=== PATIENT | male | born 1945 | race Caucasian/White ===

== ENCOUNTER → 2016-10-15 | Outpatient (CLI) | payer MEDICARE, BC ==
[~2016-10-15] MED LIST: FLOMAX0.4 MG ORAL; IBUPROFEN600 MG ORAL; NORCO 5-325 TA1 EACH ORAL; ZOFRAN ODT4 MG ORAL
--- NOTE | 2016-10-15 13:19 | Diagnostic Imaging Report ---
Indications: Pulmonary nodule Technique: Continuous helical CT imaging of the thorax and upper abdomen was performed with automatic exposure control on a Siemens sensation [address] scanner. Axial images were reconstructed at 5 mm slice thickness and interval. Coronal images were reconstructed at 5 mm slice thickness. No IV contrast was administered secondary to requesting physician's order, despite no contraindications listed. CTDI volume(s): 27 mGy Total DLP: 953 mGy-cm Findings: Comparison: 07/27/2014 3 mm noncalcified nodule medial aspect posterior segment right upper lobe (4-16) unchanged. 3 mm calcified nodule medial segment right middle lobe (4-31) unchanged. 2 mm noncalcified nodule periphery lateral basal segment right lower lobe (4-36) unchanged. 5 mm calcified nodule in the lingula (4-33) unchanged. Patchy groundglass opacity medial segment right lower lobe (4-33) decreased. Patchy groundglass opacity previously demonstrated in the posterior basal segment right lower lobe resolved. No new pulmonary parenchymal abnormality demonstrated. No pleural disease is evident. Heart remains normal in size. No pericardial abnormality. Scattered arterial mural calcification. Vascular patency indeterminate. Thoracic aorta nonaneurysmal. No overtly enlarged mediastinal or hilar lymph nodes detected. Asymmetrically increased soft tissue density in retroareolar aspect of right anterior chest wall unchanged. Chest wall soft tissues remain otherwise nonfocal. 5 mm stone upper pole right kidney unchanged. Remainder of imaged upper abdominal anatomy unremarkable. Disc space narrowing with marginal osteophyte formation, vacuum phenomenon scattered throughout thoracic spine unchanged. IMPRESSION: Stable bilateral lung nodules as described, likely all granulomatous in nature Decrease in medial basal segment, resolution of posterior basal segment right lower lobe patchy groundglass opacities compatible with resolving inflammatory disease Mild arteriosclerosis Stable right gynecomastia Stable nonobstructive right nephrolithiasis Degenerative spondylosis
== END | disposition home or self-care (01) ==
LOC: CAT 10:11
DX: R91.8 Other nonspecific abnormal finding of lung field (principal); I70.90 Unspecified atherosclerosis; N62 Hypertrophy of breast; N20.0 Calculus of kidney; M47.9 Spondylosis, unspecified
CPT/HCPCS: 71250

== ENCOUNTER 2017-01-24 16:14 | Inpatient (IN) | payer MEDICARE, BC ==
[~2017-01-24] VITALS: Ht 180.3 cm; Wt 117.5 kg
[2017-01-24] MEDS ORDERED: METFORMIN HCL500 M1 ORAL (16:25)
[2017-01-24] MEDS ORDERED: LIVALO4 MG PO (16:26)
[2017-01-24] MEDS ORDERED: Morphine Sulfate 4mg/ml Inj IVP ONE ×2 (16:45→18:15)
[2017-01-24 17:10] VITALS: BP 145/71
[2017-01-24 17:29] LABS: BASOPHILS % (AUTO) 1.3 % (0.0-2.0); LYMPHOCYTES % (AUTO) 31.4 % (20.0-45.0); MEAN CORPUSCULAR HEMOGLOBIN 30.1 PG (27.0-31.0); MEAN CORPUSCULAR VOLUME 86 FL (80-99); MONOCYTES % (AUTO) 8.1 % (1.0-10.0); NEUTROPHILS % (AUTO) 57.2 % (45.0-75.0); PLATELET COUNT 218 K/UL (150-450); RED BLOOD COUNT 5.67 M/UL (4.70-6.10); RED CELL DISTRIBUTION WIDTH 12.7 % (11.6-14.8)
[2017-01-24 17:54] LABS: ALANINE AMINOTRANSFERASE 42 U/L (3-41); ANION GAP 19 (5-15); ASPARTATE AMINO TRANSFERASE 33 U/L (5-40); CALCIUM 9.3 mg/dL (8.6-10.2); CARBON DIOXIDE 21 mEQ/L (20-30); CHLORIDE 101 mEQ/L (98-107); CREATININE 1.3 mg/dL (0.7-1.2); HEMOLYSIS 51; LIPASE 54 U/L (< 60); POTASSIUM 4.5 mEQ/L (3.4-4.9); SODIUM 141 mEQ/L (135-145); TOTAL PROTEIN 6.3 g/dL (6.6-8.7)
[2017-01-24] MEDS ORDERED: Ketorolac 30mg Inj IV ONE (18:15)
[2017-01-24 18:19] LABS: APPEARANCE,URINE CLEAR; KETONES,URINE 1+ (NEGATIVE); LEUKOCYTE ESTERASE ,URINE 1+ (NEGATIVE); NITRITE,URINE NEGATIVE (NEGATIVE); PH,URINE 5 (4.5-8.0); PROTEIN,URINE 1+ (NEGATIVE); UROBILINOGEN,URINE 1 MG/DL (0.0-1.0)
[2017-01-24 18:29] LABS: AMORPHOUS SEDIMENT,UR FEW /LPF; BACTERIA,URINE FEW /HPF
[2017-01-24 19:15] VITALS: BP 133/78
[2017-01-24] MEDS ORDERED: cefTRIAXone 1 GM in NS 55 ML IVPB ONE (19:45)
--- NOTE | 2017-01-24 19:49 | Emergency Room Report ---
History of Present Illness General Chief Complaint: Abdominal Pain Source: Patient Present Illness HPI 71-year-old male presents to ED complaining of abdominal pain x3 days. Notes pain and right lower quadrant, sharp, 8 at 10, nonradiating. Denies nausea or vomiting. Denies fevers or chills. States he previously had his appendix removed. Notes history of kidney stones. No aggravating or relieving factors. Denies any other associated symptoms Allergies: Coded Allergies: No Known Allergies (Unverified , 02/21/14) Patient History Past Medical History: DM, other - kidney stones Past Surgical History: none Pertinent Family History: none Social History: Denies: alcohol use, drug use, smoking Immunizations: UTD Reviewed Nursing Documentation: PMH: Agreed, PSxH: Agreed Nursing Documentation-PMH Past Medical History: No History, Except For Hx Diabetes: Yes Hx Neurological Problems: Yes - Peripheral neuropathy, spinal stenoisis, arthritis Review of Systems All Other Systems: negative except mentioned in HPI Physical Exam Vital Signs Date Time Temp Pulse Resp B/P Pulse Ox O2 Delivery O2 Flow Rate FiO2 01/24/17 16:20 98.2 95 16 132/91 96 Room Air Sp02 EP Interpretation: reviewed, normal General Appearance: no apparent distress, alert, GCS 15, non-toxic, obese Head: normocephalic Eyes: bilateral eye PERRL, bilateral eye normal inspection ENT: normal ENT inspection Neck: normal inspection Respiratory: chest non-tender, lungs clear, normal breath sounds, speaking full sentences Cardiovascular #1: regular rate, rhythm, no edema Gastrointestinal: tenderness - RLQ Genitourinary: no CVA tenderness Musculoskeletal: normal inspection Neurologic: alert, oriented x3, responsive, motor strength/tone normal, sensory intact, speech normal Psychiatric: normal inspection Skin: normal inspection Lymphatic: normal inspection Medical Decision Making Diagnostic Impression: Primary Impression: Kidney stone Additional Impressions: Ureterolithiasis Hydronephrosis with renal and ureteral calculous obstruction ARF (acute renal failure) Qualified Codes: N17.9 - Acute kidney failure, unspecified ER Course Hospital Course 71-year-old M presents to ED with RLQ pain Differential diagnosis includes-appendicitis, cholecystitis, kidney stone, pyelonephritis Clinical course Patient placed on stretcher. After initial history and physical I ordered labs , IV fluids, pain medications and CT scan Labs - noted leukocytosis, Cr 1.3, LFTs normal, UA - gross blood some bacteria CT scan shows proximal 5mm stone obstructive. perinephric stranding Given leukocytosis, perinephric stranding, THEA I believe patient should be admitted. Antibiotics given. case discussed with Dr Cordero and she agreed to admit the patient to her service for further care and support I feel this is a highly complex case requiring extensive working including EKG/ Rhythm strip, Xray/CT/US, Blood/urine lab work, repeat exams while in ED, and administration of strong opiates/narcotics for pain control, admission to hospital or close patient follow up. Diagnosis - kidney stone, ureterolithiasis, hydronephrosis with renal and ureteral obstruction admitted in serious condition Labs Test 01/24/17 17:00 01/24/17 18:05 White Blood Count 12.0 K/UL (4.8-10.8) Red Blood Count 5.67 M/UL (4.70-6.10) Hemoglobin 17.1 G/DL (14.2-18.0) Hematocrit 48.8 % (42.0-52.0) Mean Corpuscular Volume 86 FL (80-99) Mean Corpuscular Hemoglobin 30.1 PG (27.0-31.0) Mean Corpuscular Hemoglobin Concent 35.0 G/DL (32.0-36.0) Red Cell Distribution Width 12.7 % (11.6-14.8) Platelet Count 218 K/UL (150-450) Mean Platelet Volume 7.0 FL (6.5-10.1) Neutrophils (%) (Auto) 57.2 % (45.0-75.0) Lymphocytes (%) (Auto) 31.4 % (20.0-45.0) Monocytes (%) (Auto) 8.1 % (1.0-10.0) Eosinophils (%) (Auto) 2.0 % (0.0-3.0) Basophils (%) (Auto) 1.3 % (0.0-2.0) Sodium Level 141 mEQ/L (135-145) Potassium Level 4.5 mEQ/L (3.4-4.9) Chloride Level 101 mEQ/L (98-107) Carbon Dioxide Level 21 mEQ/L (20-30) Anion Gap 19 (5-15) Blood Urea Nitrogen 22 mg/dL (7-23) Creatinine 1.3 mg/dL (0.7-1.2) Estimat Glomerular Filtration Rate mL/min (>60) Glucose Level 105 mg/dL (74-106) Calcium Level 9.3 mg/dL (8.6-10.2) Total Bilirubin 0.3 mg/dL (0.0-1.2) Aspartate Amino Transf (AST/SGOT) 33 U/L (5-40) Alanine Aminotransferase (ALT/SGPT) 42 U/L (3-41) Alkaline Phosphatase 85 U/L (40-129) Total Protein 6.3 g/dL (6.6-8.7) Albumin 3.2 g/dL (3.5-5.2) Globulin 3.1 g/dL Albumin/Globulin Ratio 1.0 (1.0-2.7) Lipase 54 U/L (< 60) Urine Color Yellow Urine Appearance Clear Urine pH 5 (4.5-8.0) Urine Specific [place] 1.025 (1.005-1.035) Urine Protein 1+ (NEGATIVE) Urine Glucose (UA) Negative (NEGATIVE) Urine Ketones 1+ (NEGATIVE) Urine Occult Blood 5+ (NEGATIVE) Urine Nitrite Negative (NEGATIVE) Urine Bilirubin Negative (NEGATIVE) Urine Urobilinogen 1 MG/DL (0.0-1.0) Urine Leukocyte Esterase 1+ (NEGATIVE) Urine RBC 5-10 /HPF (0 - 0) Urine WBC 2-4 /HPF (0 - 0) Urine Squamous Epithelial Cells None /LPF (NONE/OCC) Urine Amorphous Sediment Few /LPF (NONE) Urine Bacteria Few /HPF (NONE) CT/MRI/US Diagnostic Results CT/MRI/US Diagnostic Results : Imaging Test Ordered: CT A/P Impression 5mm stone in Right proximal ureter 5mm. obstructive. bilateral renal stones. perinephric infiltration/fluid. hypoperfusion R kidney compared to left. bladder wall thickening. Last Vital Signs Date Time Temp Pulse Resp B/P Pulse Ox O2 Delivery O2 Flow Rate FiO2 01/24/17 19:15 98.2 86 13 133/78 96 Room Air Status: improved Disposition: ADMITTED INPATIENT Condition: Serious Referrals: RAFAEL ZARATE (PCP) COLLIN HARDY M.D. January 24, 2017 19:49
[2017-01-24 20:00] VITALS: BP 188/102
[2017-01-24 20:30] VITALS: BP 133/75
[2017-01-24 21:00] VITALS: BP 125/68
[2017-01-24] MEDS ORDERED: Heparin 5000 units/ml inj SUBQ ONE (21:30)
[2017-01-24 22:00] VITALS: BP 131/80
[2017-01-24] MEDS ORDERED: ASPIRIN81 MG ORAL (23:12)
[2017-01-24] MEDS ORDERED: VITAMIN D1000 UNI1 ORAL (23:12)
[2017-01-25] VITALS: BP 115/70
[2017-01-25 04:00] VITALS: BP 129/84
[2017-01-25] MEDS: metFORMIN 500mg tab ORAL SCH ×3 (05:56→16:33)
[2017-01-25] MEDS: Morphine Sulfate 4mg/ml Inj IVP PRN ×3 (05:56→23:25)
[2017-01-25] MEDS: NovoLOG Insulin Flexpen SUBQ SCH ×4 (06:23→21:00)
[2017-01-25 07:22] LABS: BASOPHILS % (AUTO) 1.1 % (0.0-2.0); LYMPHOCYTES % (AUTO) 31.6 % (20.0-45.0); MEAN CORPUSCULAR HEMOGLOBIN 28.3 PG (27.0-31.0); MEAN CORPUSCULAR HGB CONC 33.4 G/DL (32.0-36.0); MEAN CORPUSCULAR VOLUME 85 FL (80-99); MEAN PLATELET VOLUME 8.1 FL (6.5-10.1); MONOCYTES % (AUTO) 9.1 % (1.0-10.0); NEUTROPHILS % (AUTO) 56.4 % (45.0-75.0); PLATELET COUNT 199 K/UL (150-450); RED BLOOD COUNT 5.17 M/UL (4.70-6.10); RED CELL DISTRIBUTION WIDTH 12.6 % (11.6-14.8)
[2017-01-25 07:36] LABS: ALANINE AMINOTRANSFERASE 33 U/L (3-41); ALBUMIN/GLOBULIN RATIO 1.1 (1.0-2.7); ANION GAP 15 (5-15); ASPARTATE AMINO TRANSFERASE 25 U/L (5-40); CALCIUM 8.5 mg/dL (8.6-10.2); CARBON DIOXIDE 25 mEQ/L (20-30); CHLORIDE 102 mEQ/L (98-107); CREATININE 1.2 mg/dL (0.7-1.2); HEMOLYSIS 7; POTASSIUM 3.7 mEQ/L (3.4-4.9); SODIUM 142 mEQ/L (135-145); TOTAL PROTEIN 5.5 g/dL (6.6-8.7)
[2017-01-25 08:00] VITALS: BP 132/56
--- NOTE | 2017-01-25 09:26 | Nephrology Progress Note ---
Assessment/Plan Assessment 1.nephrolithiasis 2.right hydro 3.THEA 4.UTI 5.DM 6.Dyslipidemia Plan IVF Pain management iv antibiotic urology consult Subjective Constitutional: Reports: no symptoms HEENT: Reports: no symptoms Genitourinary: Reports: burning, flank pain, frequency, hematuria Neurologic/Psychiatric: Reports: no symptoms Objective Objective Last 24 Hour Vital Signs Date Time Temp Pulse Resp B/P Pulse Ox O2 Delivery O2 Flow Rate FiO2 01/25/17 08:00 97.9 89 20 132/56 95 Room Air 01/25/17 06:26 97.5 01/25/17 04:00 97.5 65 20 129/84 95 Room Air 01/25/17 00:00 97.5 67 20 115/70 95 Room Air 01/24/17 22:00 98.2 69 17 131/80 100 Room Air 01/24/17 22:00 69 17 131/80 100 Room Air 01/24/17 21:00 98.1 72 17 125/68 100 Room Air 01/24/17 20:30 98.0 74 16 133/75 99 Room Air 01/24/17 20:00 97.7 75 18 188/102 98 Room Air 01/24/17 19:15 98.2 86 13 133/78 96 Room Air 01/24/17 19:08 98.3 01/24/17 19:07 98.3 01/24/17 18:01 98.3 01/24/17 17:10 96 17 145/71 95 Room Air 01/24/17 16:20 98.2 95 16 132/91 96 Room Air Intake and Output 01/24/17 01/25/17 19:00 07:00 Intake Total 525 ml Output Total 850 ml Balance -325 ml Intake IV Total 525 ml Output Urine Total 850 ml Laboratory Tests 01/24/17 17:00: White Blood Count 12.0H, Red Blood Count 5.67, Hemoglobin 17.1, Hematocrit 48.8 , Mean Corpuscular Volume 86, Mean Corpuscular Hemoglobin 30.1, Mean Corpuscular Hemoglobin Concent 35.0, Red Cell Distribution Width 12.7, Platelet Count 218, Mean Platelet Volume 7.0, Neutrophils (%) (Auto) 57.2, Lymphocytes (% ) (Auto) 31.4, Monocytes (%) (Auto) 8.1, Eosinophils (%) (Auto) 2.0, Basophils ( %) (Auto) 1.3, Sodium Level 141, Potassium Level 4.5, Chloride Level 101, Carbon Dioxide Level 21, Anion Gap 19H, Blood Urea Nitrogen 22, Creatinine 1.3H , Estimat Glomerular Filtration Rate , Glucose Level 105, Calcium Level 9.3, Total Bilirubin 0.3, Aspartate Amino Transf (AST/SGOT) 33, Alanine Aminotransferase (ALT/SGPT) 42H, Alkaline Phosphatase 85, Total Protein 6.3L, Albumin 3.2L, Globulin 3.1, Albumin/Globulin Ratio 1.0, Lipase 54 01/24/17 18:05: Urine Color Yellow, Urine Appearance Clear, Urine pH 5, Urine Specific [place] 1.025, Urine Protein 1+H, Urine Glucose (UA) Negative, Urine Ketones 1+H, Urine Occult Blood 5+H, Urine Nitrite Negative, Urine Bilirubin Negative, Urine Urobilinogen 1H, Urine Leukocyte Esterase 1+H, Urine RBC 5-10H, Urine WBC 2-4, Urine Squamous Epithelial Cells None, Urine Amorphous Sediment FewH, Urine Bacteria Few 01/25/17 04:40: White Blood Count 10.0, Red Blood Count 5.17, Hemoglobin 14.6, Hematocrit 43.7, Mean Corpuscular Volume 85, Mean Corpuscular Hemoglobin 28.3, Mean Corpuscular Hemoglobin Concent 33.4, Red Cell Distribution Width 12.6, Platelet Count 199, Mean Platelet Volume 8.1, Neutrophils (%) (Auto) 56.4, Lymphocytes (%) (Auto) 31.6, Monocytes (%) (Auto) 9.1, Eosinophils (%) (Auto) 2.0, Basophils (%) (Auto ) 1.1, Sodium Level 142, Potassium Level 3.7, Chloride Level 102, Carbon Dioxide Level 25, Anion Gap 15, Blood Urea Nitrogen 22, Creatinine 1.2, Estimat Glomerular Filtration Rate , Glucose Level 107H, Calcium Level 8.5L, Total Bilirubin 0.4, Aspartate Amino Transf (AST/SGOT) 25, Alanine Aminotransferase ( ALT/SGPT) 33, Alkaline Phosphatase 70, Total Protein 5.5L, Albumin 2.9L, Globulin 2.6, Albumin/Globulin Ratio 1.1 Height (Feet): 5 Height (Inches): 11.00 Weight (Pounds): 259 Objective Head: normocephalic Eyes: bilateral eye PERRL, bilateral eye normal inspection ENT: normal ENT inspection Neck: normal inspection Respiratory: chest non-tender, lungs clear, normal breath sounds, speaking full sentences Cardiovascular #1: regular rate, rhythm, no edema Gastrointestinal: tenderness - RLQ Genitourinary: no CVA tenderness Musculoskeletal: normal inspection Neurologic: alert, oriented x3, responsive, motor strength/tone normal, sensory intact, speech normal NINFA COPE January 25, 2017 09:26
[2017-01-25] MEDS: Heparin 5000 units/ml inj SUBQ SCH ×2 (09:29→21:23)
[2017-01-25 12:00] VITALS: BP 132/78
[2017-01-25 16:00] VITALS: BP 143/69
[2017-01-25 20:00] VITALS: BP 143/85
[2017-01-25] MEDS ORDERED: Tamsulosin 0.4mg cap ORAL SCH (21:00)
--- NOTE | 2017-01-26 | Consultation ---
DATE OF CONSULTATION: 01/25/2017 CONSULTING PHYSICIAN: Korey Larsen M.D. REFERRING PHYSICIAN: Sharyn Cordero M.D. REASON FOR CONSULTATION: For evaluation of kidney stone. HISTORY OF PRESENT ILLNESS: This is a pleasant 71-year-old male, who came to the hospital because of abdominal pain, which was mostly right-sided. He had a CT scan that showed an obstructive stone of the right proximal ureter. Urology evaluation requested. The patient states that he has had kidney stones before. He has had previous surgery before. He has occasional urinary frequency. PAST MEDICAL HISTORY: Significant for above, also history of diabetes. PAST SURGICAL HISTORY: As above. CURRENT MEDICATIONS: In the hospital, the patient is on Levaquin, heparin, metformin, insulin, sodium chloride, and Zofran. ALLERGIES: No know drug allergies. SOCIAL HISTORY: Currently nonsmoker. FAMILY HISTORY: Noncontributory. REVIEW OF SYSTEMS: As above. PHYSICAL EXAMINATION: GENERAL: This is an elderly male, in no acute distress. VITAL SIGNS: Temperature is 97.9 degrees, blood pressure 142/65, pulse 70, and respirations 20. HEENT: Normocephalic. NECK: Supple. ABDOMEN: Soft. BACK: No CVA tenderness. GENITALIA: Normal genitalia. RECTAL: Smooth prostate 40 grams. EXTREMITIES: No clubbing or cyanosis. LABORATORY AND DIAGNOSTIC DATA: UA showed 2 to 4 WBCs, 5 to 10 RBCs, 1+ protein. White count 10.0, hemoglobin 14.6, and platelets of 199,000. BUN is 22 and creatinine 1.2. Diagnostic imaging studies, the patient had a CT scan of the abdomen and pelvis. The final report is not available. However, the preliminary report showed evidence of a 5-mm stone of the right proximal ureter and there was also mention of perinephric stranding, renal calculi, and some hydronephrosis. IMPRESSION: 1. Nephrolithiasis and stone of the right proximal ureter. 2. Hydronephrosis secondary to above. 3. Hematuria. 4. Proteinuria. 5. Benign prostate hypertrophy. 6. Urinary frequency. 7. Rule out neurogenic bladder. PLAN AND DISCUSSION: The patient again does have obstructive stone of the right ureter. He has some hydronephrosis. I will follow up on the final results of the CT. At this time, I would recommend a trial of passage with straining of urine. I will also add Flomax 0.4 mg daily. If the patient continues to have pain and is not able to pass the stone, then we may need to have intervention with ureteroscopy laser lithotripsy and stent placement. The above was discussed with the patient. I will follow the patient. Any other recommendations will be forthcoming. Thank you, Dr. Cordero, for asking me to see this patient in consultation. Korey Larsen M.D. DR: Andrade JOB#: [id number] CC:
[2017-01-26 04:00] VITALS: BP 132/66
[2017-01-26] MEDS: metFORMIN 500mg tab ORAL SCH (07:03)
[2017-01-26] MEDS: NovoLOG Insulin Flexpen SUBQ SCH (07:05)
[2017-01-26 08:11] VITALS: BP 128/75
--- NOTE | 2017-01-26 08:12 | General Progress Note ---
Progress Note Progress Note [id number] full note dictated NINFA COPE January 26, 2017 08:12
[2017-01-26] MEDS: Heparin 5000 units/ml inj SUBQ SCH (08:16)
[2017-01-26] MEDS ORDERED: NORCO 10-325 T1 EACH ORAL (08:30)
--- NOTE | 2017-01-26 08:31 | History and Physical Report ---
DATE OF ADMISSION: 01/24/2017 PRIMARY DOCTOR: Juan Santoro M.D. REASON FOR ADMISSION: Abdominal pain. HISTORY OF PRESENT ILLNESS: The patient is a very pleasant 71-year-old man with past medical history significant for a history of diabetes, hypertension, and history of kidney stone in the past. He is post lithotripsy and removal of the kidney stone. He presented to the emergency room complaining of right flank pain. The pain was 8/10. He denied having any nausea or vomiting. He complained of dark urine color, but denies having any frequency, urgency, or hematuria. There is no aggravating or relieving factor for the pain. CT scan of the abdomen was found to have recurrent small kidney stone and hydronephrosis. The patient decided to be admitted and I was called for admission. ALLERGIES: No known drug allergies. SOCIAL HISTORY: He worked as , but there is no history of tobacco, alcohol, or drug use. FAMILY HISTORY: Negative for any premature heart disease. PAST MEDICAL HISTORY: 1. History of diabetes. 2. History of . 3. History of arthritis. 4. History of chronic kidney disease. 5. Dyslipidemia. 6. Kidney stone. PAST SURGICAL HISTORY: History of lithotripsy and kidney stone removal. REVIEW OF SYSTEMS: General: He denies any weight loss, weight gain, fever, chills, or night sweats. HEENT And Neck: Denies any dysphagia, odynophagia, blurry vision, headache, or neck stiffness. Pulmonary: No shortness of breath, cough, or sputum. Cardiovascular: Denies any chest pain or palpitations. Gastrointestinal: Denies any nausea, vomiting, diarrhea, hematemesis, or hematochezia. Genitourinary: He did complain of dark urine and mild dysuria. No frequency. No gross hematuria. Extremities: Denies any weakness or numbness. PHYSICAL EXAMINATION: VITAL SIGNS: Temperature 98, blood pressure 125/68, pulse rate 72, and respiratory rate 18. HEENT AND NECK: No JVP. No LAD. No thyromegaly. Extraocular movements are intact. Pupils are reactive to light and accommodation. LUNGS: Clear to auscultation. CARDIAC: Regular rate and rhythm. S1 and S2. No murmur. No rub. ABDOMEN: Soft and nontender. Mild right CVA tenderness. EXTREMITIES: No edema. No clubbing. No cyanosis. LABORATORY DATA: WBC 12, hemoglobin 14.6, hematocrit 43, and platelet count 189,000. Chemistry revealed sodium of 141, potassium 4.1, chloride 101, bicarb 21, BUN 19, creatinine 1.2, glucose 105, and calcium 9.5. AST 33, ALT 42, alkaline phosphatase 85, total protein 6.3, and albumin 3.3. UA revealed specific gravity of 1.025, protein 1+, ketone 1+, blood 5+, WBCs 5-10, RBCs 3-4, and bacteria many. CT of the abdomen revealed a 5 mm stone in the right proximal ureter, bilateral renal stones, inflammation, and hypoperfusion of the right kidney compared to the left. ASSESSMENT: 1. Right obstructive kidney stone. 2. Acute renal failure. 3. Possible urinary tract infection. 4. Diabetes. 5. Dyslipidemia. PLAN: I would start the patient on IV fluids and pain management . I did consult Urology for further evaluation. I did IV hydration. I will monitor renal function and electrolytes closely. We will continue to do the blood sugar. Sharyn Cordero M.D. DR: BRISEYDA JOB#: [id number] CC:
[2017-01-26] MEDS ORDERED: TAMSULOSIN HCL0.4 MG ORAL (08:32)
--- NOTE | 2017-01-26 08:34 | Diagnostic Imaging Report ---
Indications: Nonradiating right lower quadrant abdominal pain for 3 days Technique: Continuous helical CT imaging of the abdomen and pelvis was performed with automatic exposure control following administration of nonionic IV contrast only, on a Siemens sensation [address] scanner. Axial and coronal images were reconstructed at 5 mm slice thickness. No oral contrast was administered per requesting physician's order, no contraindications listed. CTDI volume(s): 19 mGy Total DLP: 1003 mGy-cm Findings: Comparison: Noncontrast CT abdomen pelvis 10/18/2014 5 mm stone currently resides within the right ureteropelvic junction. Right renal collecting system mildly dilated. Mild stranding and fluid surrounding the right kidney. Right nephrographic enhancement delayed compared left. Additional 8 and 5 mm stones are present within the right kidney, likely within calyces/infundibulum. 5 mm stone within the lower pole of left kidney, likely within calyxes. Left renal collecting system and ureter normal caliber. No surrounding stranding or fluid. Urinary bladder poorly distended with apparent diffuse mural thickening, unchanged. No intraluminal stone. Nodular calcifications again noted in tail of pancreas, left are somewhat atrophic. Scattered arterial mural calcifications without obvious flow-limiting stenosis or occlusion. Small fat-containing right inguinal hernia. Remainder visualized abdominopelvic anatomy demonstrates no other obvious acute abnormality. Lung bases adjacent pleural surfaces clear. Degenerative changes again noted in lumbar, lower thoracic spine. IMPRESSION: 5 mm obstructing stone right ureteropelvic junction with mild hydronephrosis, perinephric fluid. Superimposed pyelonephritis not excludable. Delayed nephrographic enhancement compared left compatible with at least a mild degree of obstructive nephropathy. Excretory function cannot be evaluated on this examination due to lack of delayed imaging. Additional bilateral nonobstructive nephrolithiasis. Focal infundibular obstruction by stone in upper pole of right kidney not excludable. 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
[2017-01-26] MEDS ORDERED: Tubing IV Secondary IV ONE (09:19)
--- NOTE | 2017-01-26 09:37 | Urology Progress Note ---
Assessment/Plan Assessment/Plan 1. Nephrolithiasis and stone of the right proximal ureter. 2. Hydronephrosis secondary to above. 3. Hematuria. 4. Proteinuria. 5. Benign prostate hypertrophy. 6. Urinary frequency. 7. Rule out neurogenic bladder. d/w pt extensively CT scan reviewed options of trial of passage vs lithotripsy pt wants to cont straining urine and go home with outpt f/u will plan to see in office this week check KUB as outpt and then decide on surg if needed Subjective Allergies: Coded Allergies: No Known Allergies (Unverified , 02/21/14) Subjective all noted, pt seen earlier this morning, fair sx's, no significant flank pain, wants to go home Objective Last 24 Hour Vital Signs Date Time Temp Pulse Resp B/P Pulse Ox O2 Delivery O2 Flow Rate FiO2 01/26/17 08:11 97.9 114 23 128/75 97 Room Air 01/26/17 04:00 98.0 80 20 132/66 95 Room Air 01/25/17 20:00 98.1 89 20 143/85 94 Room Air 01/25/17 16:00 97.9 78 20 143/69 96 Room Air 01/25/17 12:27 97.9 01/25/17 12:00 97.9 52 20 132/78 97 Room Air Intake and Output 01/25/17 01/26/17 19:00 07:00 Intake Total 3650 ml 675 ml Output Total 2100 ml Balance 1550 ml 675 ml Intake Oral 3000 ml IV Total 650 ml 675 ml Output Urine Total 2100 ml # Voids 2 Height (Feet): 5 Height (Inches): 11.00 Weight (Pounds): 259 Objective exam stable JOHN HANSEN January 26, 2017 09:37
--- NOTE | 2017-01-27 00:45 | Discharge Summary ---
DATE OF ADMISSION: 01/24/2017 DATE OF DISCHARGE: 01/26/2017 ADMISSION DIAGNOSES: 1. Acute nephrolithiasis. 2. Hydronephrosis. 3. Hematuria. 4. Proteinuria. 5. Benign prostatic hypertrophy. 6. Diabetes. COURSE OF HOSPITAL ADMISSION: The patient is a pleasant 71-year-old male with past medical history significant for history of nephrolithiasis and history of lithotripsy, who presented to the emergency room complaining of right-sided hydronephrosis. The patient was evaluated and admitted in the hospital, started on IV fluids and pain medication. He was seen by urologist. Plan to do an outpatient CT urogram by Dr. Larsen and possibly lithotripsy to be scheduled as an outpatient. The patient would like to be discharged and have follow up with outpatient visit with Dr. Larsen and arrange for lithotripsy as an outpatient. The patient's condition got better. His pain got under control. The patient was also given pain medication as outpatient. He started on Flomax and also was explained to need to strain the urine for evaluation of the kidney stone analysis. PHYSICAL EXAMINATION: VITAL SIGNS: Upon discharge, the patient 's vital signs, temperature was 98 degrees, blood pressure was 132/78, pulse 52, and respiratory rate of 18. HEAD AND NECK: No JVP. No LAD. No thyromegaly. Extraocular movement intact. Pupils are reactive to light and accommodation. LUNGS: Clear to auscultation. CARDIAC: Regular rate and rhythm. S1-S2. No murmur. No rub. ABDOMEN: Soft, nontender, and nondistended. EXTREMITIES: No edema. No clubbing. No cyanosis. LABORATORY AND DIAGNOSTIC DATA: Revealed sodium 141, potassium 3.7, 102 chloride, 25 bicarb, BUN 22, creatinine dropped from 4.3 to 1.2, and glucose of 105. Calcium was 8.5. The patient did not have any white count. WBC count was 10, hemoglobin 14.6, hematocrit 43, and platelet count 536,000. The patient had a CT scan of the abdomen, which review the final report is not available. The preliminary report revealed 5 mm kidney stone with right-sided perinephric stranding. DISCHARGE DIAGNOSES: 1. Nephrolithiasis. 2. Right hydronephrosis. 3. Hypertension. 4. Diabetes. 5. Benign prostatic hypertrophy. 6. Hypocalcemia. 7. Acute renal failure. DISPOSITION: Home with pain medication and Flomax. FOLLOWUP: Follow up will be with the primary doctor and also with Dr. Larsen for treatment of lithotripsy and cystoscopy. Sharyn Cordero M.D. DR: Estefania JOB#: [id number] CC:
== END 2017-01-26 09:20 | disposition home or self-care (01) | DRG 694 ==
LOC: EMR 16:44 → 3E 19:40 → EDBEDREQ 20:12 → 4E 21:28
DX: N13.2 Hydronephrosis with renal and ureteral calculous obstruction (principal); N17.9 Acute kidney failure, unspecified; N40.1 Benign prostatic hyperplasia with lower urinary tract symptoms; R35.0 Frequency of micturition; E11.9 Type 2 diabetes mellitus without complications; E78.5 Hyperlipidemia, unspecified; E83.51 Hypocalcemia; M19.90 Unspecified osteoarthritis, unspecified site; I12.9 Hypertensive chronic kidney disease with stage 1 through stage 4 chronic kidney disease, or unspecified chronic kidney disease; N18.9 Chronic kidney disease, unspecified
CPT/HCPCS: 36415; 74177; 80053; 81003; 82962; 83690; 85025; J1815

== ENCOUNTER 2017-12-17 08:55 | Outpatient (CLI) | payer MEDICARE, BC ==
[~2017-12-17 08:55] MED LIST changes: +ASPIRIN81 MG ORAL; +LIVALO4 MG PO; +METFORMIN HCL500 M1 ORAL; +NORCO 10-325 T1 EACH ORAL; +TAMSULOSIN HCL0.4 MG ORAL; +VITAMIN D1000 UNI1 ORAL
--- NOTE | 2017-12-17 11:01 | Diagnostic Imaging Report ---
Indication: Chest and abdominal pain. Chronic cough Technique: Continuous helical transaxial imaging of the abdomen and pelvis was obtained from the lung bases to the pubic symphysis. No IV contrast was administered. Coronal 2-D reformats were also obtained. Study obtained in a Siemens sensation [address] Total Dose length Product (DLP): 1639.[address] Dose Index Volume (CTDIvol): 24.68 mGy Comparison: CT chest 10/15/2016. CT abdomen and pelvis 01/24/2017 Findings: CT CHEST: There is minimal scarring involving the posterior medial right lung base. The lungs are clear otherwise. There is no evidence of infiltrate/airspace disease or abnormal interstitial opacities. No pleural effusion identified. No adenopathy appreciated. Gynecomastia noted. Small hiatal hernia is present. There is narrowing of intervertebral discs and accompanying endplate osteophyte formation. Hypertrophied facet joints also demonstrated.. CT abdomen and pelvis: Study is done as a noncontrast examination and as such evaluation of solid organs is limited. Gallbladder is unremarkable. There are tiny nonobstructive stones within both kidneys. There is no hydronephrosis. No evidence of bowel obstruction or significant free fluid. Accessory spleen noted. The appendix is normal. Arterial calcifications are present. There is a small right inguinal hernia containing fat. There are diverticula in the colon mild in degree. No definite diverticulitis appreciated. There is thickening of the wall of the urinary bladder. In addition the bladder lumen appears abnormal with soft tissue attenuation and not fluid attenuation. Query hematuria or mass. Consider evaluation with cystoscopy or at least ultrasound to evaluate the bladder. IMPRESSION: Abnormal appearance of the bladder lumen which has attenuation similar to soft tissue. Further investigation of this is suggested either with cystoscopy or at least ultrasound evaluation. Bilateral nonobstructive nephrolithiasis. Findings were seen previously in 01/24/2017. Essentially negative CT of the chest without explanation for given cough symptoms. No evidence of pneumonia or other acute process. Small focus of scarring likely present in the posteromedial right lung base. Small right inguinal hernia containing fat Small umbilical hernia containing fat. Atherosclerotic vascular disease. Gynecomastia Degenerative spondylosis The CT scanner at [facility] is accredited by the [employer] and the scans are performed using dose optimization techniques as appropriate to a performed exam including Automatic Exposure control.
== END 2017-12-17 10:55 | disposition home or self-care (01) ==
LOC: CAT 08:55
DX: R10.9 Unspecified abdominal pain (principal); R07.9 Chest pain, unspecified; R05 Cough; M47.9 Spondylosis, unspecified; N62 Hypertrophy of breast; I70.90 Unspecified atherosclerosis; K42.9 Umbilical hernia without obstruction or gangrene; K40.90 Unilateral inguinal hernia, without obstruction or gangrene, not specified as recurrent; N20.0 Calculus of kidney
CPT/HCPCS: 71250; 74176

== ENCOUNTER 2018-11-22 12:18 | Outpatient (CLI) | payer MEDICARE, BC ==
--- NOTE | 2018-11-22 15:11 | Diagnostic Imaging Report ---
Clinical Indication: Chest pain, mediastinal widening Technique: Spiral acquisitions obtained through the chest. No IV contrast utilized, referring physician request. Multiplanar reconstructions generated. Total dose length product 980.1 mGycm. CTDIvol(s) 26.15 mGy. Dose reduction achieved using automated exposure control Comparison: 12/17/2017 Findings: Lungs demonstrate a 2 mm calcified nodule in the medial right middle lobe. A 5 mm calcified nodule in the lingula is also evident previously. The lungs are otherwise clear. No infiltrates, masses, congestion, or effusions. The heart size is normal. There is no evidence of pericardial effusion. The main pulmonary artery is ectatic, measures 37 mm in diameter. This appears increased from the previous exam Ascending thoracic aorta is ectatic but not frankly aneurysmal, measuring 44 mm in diameter. Caliber likewise appears increased from the previous exam No mediastinal or hilar mass or adenopathy. Included portion of the thyroid is unremarkable. No axillary or chest wall mass or adenopathy. Unremarkable esophagus. There is unilateral gynecomastia on the right, mild. The bones are unremarkable. The included upper abdominal viscera are unremarkable. Impression: No mediastinal mass demonstrated Ectatic main pulmonary artery. This raises possibility of pulmonary arterial hypertension note that caliber is increased from previous exam of 12/17/2017 Ectatic but not frankly aneurysmal ascending thoracic aorta. Caliber likewise increased from the previous exam Bilateral calcified pulmonary parenchymal nodules, consistent with old granulomatous disease Unilateral right gynecomastia incidentally noted The CT scanner at [facility] is accredited by the [employer] and the scans are performed using protocols designed to limit radiation exposure to as low as reasonably achievable to attain images of sufficient resolution adequate for diagnostic evaluation.
--- NOTE | 2018-11-22 15:54 | Diagnostic Imaging Report ---
Indication: Flank pain, history of urinary stone disease Technique: Spiral acquisitions obtained through the abdomen and pelvis. No oral or IV contrast utilized, per urinary stone protocol. Multiplanar reconstructions were generated. Total dose length product 1004.06 mGycm. CTDIvol(s) 19.28 mGy. Dose reduction achieved using automated exposure control Comparison: 12/17/2017 Findings: A 4 mm calculus is seen in the right lower pole collecting system, also present previously. A 6 mm diameter calculus is again demonstrated in the left lower pole renal collecting system. 2 mm calculus is also again demonstrated in the left lower pole collecting system. No ureteral calculi, hydronephrosis, or hydroureter The lack of IV contrast limits assessment of the renal parenchyma. No gross renal parenchymal mass or cyst demonstrated. No bladder calculi. Again demonstrated is unusual appearance to the bladder, with slightly higher than fluid attenuation of the contents, particularly the submucosal fatty proliferation. Lack of IV contrast limits assessment of the other solid organs. The liver demonstrates a right lobe calcification, possibly arterial, is otherwise unremarkable. The gallbladder, bile ducts, pancreas, spleen, adrenals are unremarkable. No pelvic mass or adenopathy. There are colonic diverticula noted. No evidence of diverticulitis. The appendix is normal. No small bowel distention. No free or loculated intraperitoneal gas or fluid is evident. There is a small fat-containing umbilical hernia. The included lung bases are clear. The bones demonstrate degenerative spondylosis changes. There is a small fat-containing right inguinal hernia incidentally noted. Impression: Bilateral nonobstructive intrarenal calyceal calculi, unchanged from 12/17/2017 No evidence of ureteral calculus, hydronephrosis, or hydroureter Unusual appearance to the gallbladder luminal contents. Suspect that this is baseline appearance for this patient, as it is similar to multiple prior exams dating back to 2010. Note that the 2011 CT was an with contrast and the delayed images demonstrate no evidence of significant luminal abnormality Colonic diverticulosis. No evidence of diverticulitis Small fat-containing umbilical hernia and small fat-containing right inguinal hernia incidentally noted The CT scanner at [facility] is accredited by the [employer] and the scans are performed using protocols designed to limit radiation exposure to as low as reasonably achievable to attain images of sufficient resolution adequate for diagnostic evaluation.
== END 2018-11-22 14:18 | disposition home or self-care (01) ==
LOC: CAT 12:18
DX: R10.9 Unspecified abdominal pain (principal); N20.0 Calculus of kidney; K57.90 Diverticulosis of intestine, part unspecified, without perforation or abscess without bleeding; M47.9 Spondylosis, unspecified; K44.9 Diaphragmatic hernia without obstruction or gangrene; K40.90 Unilateral inguinal hernia, without obstruction or gangrene, not specified as recurrent; N62 Hypertrophy of breast
CPT/HCPCS: 71250; 74176